=== PATIENT | male | born 1950 | race Caucasian/White ===

== ENCOUNTER 2020-02-09 11:02 | Emergency (ER) | payer MEDICARE, OTHER ==
[~2020-02-09] VITALS: Ht 157.5 cm; Wt 73.9 kg
--- NOTE | 2020-02-09 11:43 | PHYS DOC ---
Past History Past Medical History: Kidney Stones Additional Past Medical Histor: Prostate cancer Smoking: Non-smoker General Adult EDM: Chief Complaint: BACK PAIN OR INJURY HPI: HPI: Patient is a 69-year-old male who presents to the emergency department for evaluation. He states that at about 10:30 AM this morning he had a sudden onset of severe left flank pain which radiated down towards his left groin. He states that the pain significantly improved almost to the point of complete resolution as he walked in the door to the emergency department. He did not have any hematuria, nausea, vomiting, fevers, or chills. Denies any back injury, numbness, or weakness. There are no alleviating or exacerbating factors to his symptoms otherwise. He states that he has been diagnosed with "microscopic kidney stones" in the past. Review of Systems: Review of Systems: Constitutional: Denies fever or chills Eyes: Denies change in visual acuity HENT: Denies nasal congestion or sore throat Respiratory: Denies cough or shortness of breath Cardiovascular: Denies chest pain or edema GI: Denies abdominal pain, nausea, vomiting, bloody stools or diarrhea : Denies dysuria Musculoskeletal: Denies back pain or joint pain, other than as noted in the HPI Integument: Denies rash Neurologic: Denies headache, focal weakness or sensory changes Endocrine: Denies polyuria or polydipsia Lymphatic: Denies swollen glands Psychiatric: Denies depression or anxiety Heart Score: Risk Factors: Risk Factors: DM, Current or recent (<one month) smoker, HTN, HLP, family history of CAD, obesity. Risk Scores: Score 0 - 3: 2.5% MACE over next 6 weeks - Discharge Home Score 4 - 6: 20.3% MACE over next 6 weeks - Admit for Clinical Observation Score 7 - 10: 72.7% MACE over next 6 weeks - Early Invasive Strategies Physical Exam: PE: PHYSICAL EXAM: CONSTITUTIONAL: Well developed, well nourished HEAD: normocephalic, atraumatic EENT: PERRL, EOMI. Conjunctivae normal color, sclerae non-icteric; moist mucous membranes. NECK: Supple, non-tender; no meningismus. LUNGS: Lungs CTA, breathing even and unlabored. Normal air movement. HEART: Regular rate and rhythm, no murmur CHEST: No deformity; non-tender ABDOMEN: The abdomen is soft, and non-tender, no masses or bruits. EXTREM: Normal ROM; no deformity, no calf tenderness. Normal pulses palpable in all extremities. There is no pedal edema. SKIN: No rash; no diaphoresis NEURO: Alert; normal speech and cognition; CN's grossly intact; strength grossly intact without focal deficit. BACK: There is mild left-sided CVA tenderness to palpation. There is no right- sided CVA TTP. There is no bony tenderness to palpation of the thoracic or lumbar spine. Current Patient Data: Labs: Laboratory Tests Test 02/09/20 12:06 02/09/20 12:43 White Blood Count 6.5 x10^3/uL Red Blood Count 4.53 x10^6/uL Hemoglobin 14.5 g/dL Hematocrit 42.6 % Mean Corpuscular Volume 94 fL Mean Corpuscular Hemoglobin 32 pg Mean Corpuscular Hemoglobin Concent 34 g/dL Red Cell Distribution Width 13.4 % Platelet Count 171 x10^3/uL Neutrophils (%) (Auto) 68 % Lymphocytes (%) (Auto) 20 % Monocytes (%) (Auto) 8 % Eosinophils (%) (Auto) 3 % Basophils (%) (Auto) 1 % Neutrophils # (Auto) 4.5 x10^3uL Lymphocytes # (Auto) 1.3 x10^3/uL Monocytes # (Auto) 0.5 x10^3/uL Eosinophils # (Auto) 0.2 x10^3/uL Basophils # (Auto) 0.1 x10^3/uL Sodium Level 142 mmol/L Potassium Level 4.0 mmol/L Chloride Level 106 mmol/L Carbon Dioxide Level 32 mmol/L Anion Gap 4 Blood Urea Nitrogen 22 mg/dL Creatinine 1.1 mg/dL Estimated GFR (Cockcroft-Gault) 66.8 BUN/Creatinine Ratio 20 Glucose Level 106 mg/dL Calcium Level 9.2 mg/dL Total Bilirubin 0.5 mg/dL Aspartate Amino Transf (AST/SGOT) 32 U/L Alanine Aminotransferase (ALT/SGPT) 58 U/L Alkaline Phosphatase 71 U/L Total Protein 6.4 g/dL Albumin 3.4 g/dL Albumin/Globulin Ratio 1.1 Lipase 83 U/L Urine Collection Type Unknown Urine Color Yellow Urine Clarity Clear Urine pH 6.0 Urine Specific [place] 1.025 Urine Protein Neg Urine Glucose (UA) Neg mg/dL Urine Ketones (Stick) Neg mg/dL Urine Blood Large Urine Nitrite Neg Urine Bilirubin Neg Urine Urobilinogen Dipstick 0.2 mg/dL Urine Leukocyte Esterase Neg Urine RBC >40 /HPF Urine WBC Occ /HPF Urine Squamous Epithelial Cells Few /LPF Urine Bacteria 0 /HPF Urine Mucus Mod /LPF Current Medications Medications (Trade) Dose Ordered Sig/Steven Route PRN Reason Start Time Stop Time Status Last Admin Dose Admin Sodium Chloride 1,000 ml @ 1,000 mls/hr 1X ONCE IV 02/09/20 12:30 02/09/20 13:29 DC 02/09/20 12:58 EKG: EKG: [] Radiology/Procedures: Radiology/Procedures: PROCEDURE: CT ABDOMEN PELVIS WO CONTRAST Study: CT abdomen/pelvis without intravenous contrast Indication: Left flank pain. Comparison: 12/10/2006 Technique: Helical CT imaging performed of the abdomen and pelvis without the use of intravenous contrast. Sagittal and coronal reformats were obtained. One or more of the following individualized dose reduction techniques were utilized for this examination: 1. Automated exposure control 2. Adjustment of the mA and/or kV according to patient size 3. Use of iterative reconstruction technique. Findings: Inherently limited evaluation without intravenous contrast. Unremarkable lower chest. Unremarkable liver and gallbladder. Low-attenuation focus at the periphery of the spleen, image 22 series 2, statistically most likely to be a benign process such as a hemangioma. Small left adrenal gland nodule was present in 2006 and is unchanged, image 24 series 2. The right adrenal gland is unremarkable. Nonobstructing intrarenal stones on the right. Mild pelvocaliectasis on the left in the setting of a 5.3 mm nephrolithiasis at the ureteropelvic junction. Unremarkable bladder. Status post prostatectomy. Colonic diverticuli without diverticulitis. Mild constipation. Normal appendix. Nonobstructed small bowel. Unremarkable stomach. Nonaneurysmal aorta. Mild calcific atherosclerosis. No lymphadenopathy. No free fluid or gas. No acute or aggressive osseous process. Scattered degenerative changes. Impression: Pelvocaliectasis on the left in the setting of a 5.3 mm nephrolithiasis at the ureteropelvic junction. A few nonobstructing intrarenal stones are seen on the right. [] Course & Med Decision Making: Course & Med Decision Making Pertinent Labs and Imaging studies reviewed. (See chart for details) [] 1:40 PM: The patient's condition remained stable, he remains pain-free. I discussed test results in detail with the patient, the need for close urology follow-up and return precautions. He has a urologist at who he follows up with, and I instructed him to call his urologist tomorrow to schedule follow-up appointment. He will be given a copy of his imaging reports. Return precautions were discussed in detail. Dragon Disclaimer: Dragon Disclaimer: This electronic medical record was generated, in whole or in part, using a voice recognition dictation system. Departure Departure: Impression: Primary Impression: Kidney stone Disposition: HOME/RESIDENCE PRIOR TO ADM Condition: STABLE Referrals: GRANT MOORE MD (PCP) Patient Instructions: Kidney Stones Scripts Ketorolac Tromethamine (KETOROLAC TROMETHAMINE) 10 Mg Tablet 1 TAB PO TID for PRN Pain, #15 TAB Prov: CHAVA GARCIA MD 02/09/20 Justification of Admission: Justification of Admission: Justification of Admission Dx: N/A CHAVA GARCIA MD Feb 09, 2020 11:43
--- NOTE | 2020-02-09 12:11 | RAD ---
Study: CT abdomen/pelvis without intravenous contrast Indication: Left flank pain. Comparison: 12/10/2006 Technique: Helical CT imaging performed of the abdomen and pelvis without the use of intravenous contrast. Sagittal and coronal reformats were obtained. One or more of the following individualized dose reduction techniques were utilized for this examination: 1. Automated exposure control 2. Adjustment of the mA and/or kV according to patient size 3. Use of iterative reconstruction technique. Findings: Inherently limited evaluation without intravenous contrast. Unremarkable lower chest. Unremarkable liver and gallbladder. Low-attenuation focus at the periphery of the spleen, image 22 series 2, statistically most likely to be a benign process such as a hemangioma. Small left adrenal gland nodule was present in 2006 and is unchanged, image 24 series 2. The right adrenal gland is unremarkable. Nonobstructing intrarenal stones on the right. Mild pelvocaliectasis on the left in the setting of a 5.3 mm nephrolithiasis at the ureteropelvic junction. Unremarkable bladder. Status post prostatectomy. Colonic diverticuli without diverticulitis. Mild constipation. Normal appendix. Nonobstructed small bowel. Unremarkable stomach. Nonaneurysmal aorta. Mild calcific atherosclerosis. No lymphadenopathy. No free fluid or gas. No acute or aggressive osseous process. Scattered degenerative changes. Impression: Pelvocaliectasis on the left in the setting of a 5.3 mm nephrolithiasis at the ureteropelvic junction. A few nonobstructing intrarenal stones are seen on the right. Electronically signed by: JM IBRAHIM MD (02/09/2020 12:08 PM) [id number]
[2020-02-09 12:25] LABS: BASO # 0.1 x10^3/uL (0.0-0.2); BASO % 1 % (0-3); EOS # 0.2 x10^3/uL (0.0-0.7); EOS % 3 % (0-3); HEMATOCRIT 42.6 % (39.0-53.0); HEMOGLOBIN 14.5 g/dL (13.0-17.5); LYMPH # 1.3 x10^3/uL (1.0-4.8); LYMPH % 20 % (24-48); MEAN CORPUSCULAR HEMOGLOBIN 32 pg (25-35); MEAN CORPUSCULAR HGB CONC 34 g/dL (31-37); MEAN CORPUSCULAR VOLUME 94 fL (79-100); MONO # 0.5 x10^3/uL (0.0-1.1); MONO % 8 % (0-9); NEUT # 4.5 x10^3uL (1.8-7.7); NEUT % 68 % (31-73); PLATELET COUNT 171 x10^3/uL (140-400); RED BLOOD COUNT 4.53 x10^6/uL (4.30-5.70); RED CELL DISTRIBUTION WIDTH 13.4 % (11.5-14.5); WHITE BLOOD COUNT 6.5 x10^3/uL (4.0-11.0)
[2020-02-09] MEDS ORDERED: IV NORMAL SALINE 1,000ML 1,000 ML IV ONE (12:30)
[2020-02-09 12:35] LABS: CALCIUM 9.2 mg/dL (8.5-10.1); CREATININE 1.1 mg/dL (0.7-1.3); GFR 66.8
[2020-02-09 12:40] LABS: ALBUMIN 3.4 g/dL (3.4-5.0); ALBUMIN/GLOBULIN RATIO 1.1 (1.0-1.7); TOTAL BILIRUBIN 0.5 mg/dL (0.2-1.0); TOTAL PROTEIN 6.4 g/dL (6.4-8.2)
[2020-02-09 13:15] LABS: BILIRUBIN,URINE NEG (NEG); CLARITY,URINE CLEAR; COLOR,URINE YELLOW; GLUCOSE,URINE NEG (NEG)
[2020-02-09 13:16] LABS: BACTERIA,URINE 0 /HPF (0-FEW); NITRITE,URINE NEG (NEG); RBC,URINE >40 /HPF (0-2); SQUAMOUS EPITHELIAL CELL,UR FEW /LPF; UROBILINOGEN,URINE 0.2 mg/dL (0.2 mg/dL); WBC,URINE OCC /HPF (0-4)
[2020-02-09 13:32] VITALS: BP 131/82
[2020-02-09] MEDS ORDERED: KETO10TA PO (13:41)
== END 2020-02-09 13:44 | disposition home or self-care (01) ==
LOC: ER 11:02
DX: N20.2 Calculus of kidney with calculus of ureter (principal)
CPT/HCPCS: 36415; 74176; 80053; 81001; 83690; 85025; 99285; J7030

== ENCOUNTER → 2021-09-20 | Outpatient (CLI) | payer MEDICARE, OTHER ==
[~2021-09-20] MED LIST: KETO10TA PO
--- NOTE | 2021-09-20 16:26 | RAD ---
EXAMINATION: Thyroid sonogram. INDICATION: Neck lump. COMPARISON: None. Technique: Real-time grayscale and color Doppler imaging of the thyroid gland was performed per esvin col. Findings: The right thyroid lobe measures: 4.7 x 1.5 x 1.7 cm. The left thyroid lobe measures: 4.0 x 1.2 x 1.4 cm. The isthmus measures: 2.5 mm. Estimated total number of nodules >/= 1cm: 0 Number of spongiform nodules >/= 2cm not described below (TR1): 0 The left thyroid parenchyma is heterogeneous. There are tiny colloid cyst within the right thyroid lo be measuring 4 mm. There is a 6 mm nodule within the left neck at the site of palpable concern adjacent to the submandib ular gland. IMPRESSION: 1. Tiny right thyroid colloid cysts. TI-RADS Category 1: Benign. 2. Heterogeneous left thyroid parenchyma. No solid nodule is seen in the thyroid is normal in size. 3. 6 mm nodule adjacent to the left submandibular gland at the site of probable concern, the appearan ce of which favors a lymph node with thickened cortex. This may be reactive in etiology. This appears to be separate from the adjacent submandibular gland parenchyma. Continued clinical follow-up of pal pable abnormalities is recommended. Repeat imaging can be performed if there is continuing concern or change in physical exam findings. ACR TI-RADS recommendations TR5 (?7 points) - FNA if ? 1cm, follow-up if 0.5 - 0.9 cm every year for 5 years TR4 (4-6 points) - FNA if ? 1.5cm, follow-up if 1 - 1.4 cm in 1, 2, 3 and 5 years TR3 (3 points)- FNA if ? 2.5cm, follow-up if 1.5 - 2.4 cm in 1, 3 and 5 years TR2 (2 points) & TR1 (0 points) - No FNA or follow-up *Decision to biopsy should include other considerations such as patient demographics and relevant cli nical information. Reference: TIRADS 2017 J Am Amanda Radiol 2017;[id number] Electronically signed by: Yoanna Mascorro MD (09/20/2021 4:24 PM) [id number]
== END ==
LOC: US 15:44
PROVIDERS: ATTEND Family Medicine
DX: R22.1 Localized swelling, mass and lump, neck (principal)
CPT/HCPCS: 76536